=== PATIENT | male | born 1950 | race Caucasian/White ===

== ENCOUNTER → 2023-09-21 06:39 | Day surgery (SDC) | payer MEDICARE, SELFPAY | LOC: GI 06:39 | PROVIDERS: ATTENDING PHYSICIAN Internal Medicine Gastroenterology; FAMILY PHYSICIAN Family Medicine | DX: Z12.11 Encounter for screening for malignant neoplasm of colon (principal); Z53.8 Procedure and treatment not carried out for other reasons | CPT/HCPCS: 45378; 93005; G0378 ==

== ENCOUNTER 2023-09-21 11:41 | Emergency (ER) | payer MEDICARE, SELFPAY ==
[2023-09-21 11:46] VITALS: BP 138/95
[2023-09-21 12:14] LABS: % Basophils 0.8 % (0-2); % Eosinophils 0.1 % (0-6); % Immature Granulocytes 0.1 % (0-0.5); % Lymphocytes 16.3 % (20.5-51.1); % Monocytes 9.6 % (1.7-9.3); % Neutrophils 73.1 % (42.2-75.2); Absolute Basophils 0.1 10^3/uL (0-0.2); Absolute Lymphocytes 1.3 10^3/uL (1.2-3.4); Absolute Monocytes 0.8 10^3/uL (0.1-0.6); Absolute Neutrophils 5.8 10^3/uL (1.4-6.5); Hematocrit 45.5 % (39.0-52.0); Hemoglobin 15.9 g/dL (13.0-18.0); Mean Corp Hgb Conc. 34.9 g/dL (33.0-37.0); Mean Corpuscular Hgb 31.5 pg (27.0-31.0); Mean Corpuscular Volume 90.1 fL (80.0-94.0); Mean Platelet Volume 8.5 fL (7.4-10.4); Nucleated Red Blood Cells % 0 % (-); Platelet Count 314 10^3/uL (130-400); Red Blood Cell Count 5.05 10^6/uL (4.70-6.10); Red Cell Dist. Width 12.7 % (11.5-14.5); White Blood Cell Count 7.9 10^3/uL (4.8-10.8)
[2023-09-21 12:33] LABS: ALT (SGPT) 28 U/L (0-50); AST (SGOT) 34 U/L (17-59); Albumin 4.7 g/dl (3.5-5.0); Alkaline Phosphatase 67 U/L (38-126); Blood Urea Nitrogen 12 mg/dl (9-20); Calcium 9.2 mg/dl (8.4-10.2); Carbon Dioxide 26 mmol/L (22-30); Chloride 103 mmol/L (98-107); Glucose 79 mg/dl (70-99); Potassium 4.2 mmol/L (3.5-5.1); Sodium 139 mmol/L (135-145); Total Bilirubin 1.4 mg/dl (0.2-1.3); Total Protein 7.1 g/dl (6.3-8.2); eGFR > 60.00
[2023-09-21 12:37] LABS: Troponin I < 0.012 ng/ml
--- NOTE | 2023-09-21 14:30 | ED.GENMED ---
History of Present Illness
General
Chief Complaint: Heart Rate Problem
Time Seen by Provider: 09/21/23 14:14
Travel History
Have you had any contact with someone who has COVID-19?: No
Do you have any symptoms of coronavirus? Fever > 100 degrees, chills, cough, shortness of breath, sore throat, loss of taste or smell, muscle aches, or headache?: No
History of Present Illness
History of Present Illness:
HPI: The patient presents to the ED from the GI endoscopy suite. I spoke to Dr. Vargas earlier. The patient had been tried for prep for colonoscopy today (routine), however was found to be in rapid atrial fibrillation. This is a new diagnosis
for the patient. He was advised to come to the emergency department. Upon arrival in the emergency department, heart rate was in the 80s with normal rhythm. He never sensed any abnormality earlier. He reports no history of palpitations or any
other concerns. He does state that he has a history of high blood pressure and has 'severe whitecoat syndrome'.
EXAM:
GENERAL: Well appearing in no distress, mildly hypertensive
HEENT: Moist oral mucosa
CARDIOVASCULAR: No murmurs, normal heart rate and rhythm, No chest wall tenderness
PULMONARY: No respiratory distress, breath sounds are clear and equal
ABDOMEN: Soft with no peritoneal signs, no tenderness
NEUROLOGIC: Excellent strength all extremities, no coordination deficits
PSYCHIATRIC: Appropriate mental status, normal insight and judgement, appears somewhat anxious
EXTREMITIES: Nontender, no edema, moves all extremities equally
SKIN: No rash, no lesions
ED COURSE:
2 PM: I initially evaluated patient
NUMBER AND COMPLEXITY OF PROBLEMS ADDRESSED AT THE ENCOUNTER
� Chronic conditions affecting care: High blood pressure, hyperlipidemia
� Acute Exacerbation and/or Progression of Chronic Illness: This is an acute problem
� Differential Diagnosis includes: New onset atrial fibrillation, electrolyte abnormality, anemia, thyroid disease
AMOUNT AND/OR COMPLEXITY OF DATA TO BE REVIEWED AND ANALYZED
� I performed an independent evaluation of and my interpretation is:
EKG: Sinus 81, left axis deviation, nonspecific ST abnormality
CT:
X-rays:
Laboratory Studies: CBC, chemistries unremarkable, troponin negative, potassium and magnesium are both normal, TSH also normal
Other:
� Review of other/old records: I reviewed the EKG that was obtained from earlier today before arrival at GI office that showed rapid atrial fibrillation
� Clinical information was obtained by an independent historian: I spoke to the but I also spoke to Dr. Vargas for history earlier in the day
� Prescriptions/Medications Considered but not given: Considered and strongly recommended anticoagulation given [id number] score of 2 however the patient strongly prefers to hold off and see news production supervisor first. I advised him
of the possibility of risk of undiagnosed atrial fibrillation. I also informed patient that he may have been in atrial fibrillation for longer time than what was noted today.
� Further testing considered but not performed:
RISK OF COMPLICATIONS AND/OR MORBIDITY OR MORTALITY OF PATIENT MANAGEMENT
� Social determinants of health affecting care: Lives at home
� Discussion with other providers: I spoke to Dr. Vargas who agrees that they will not be doing colonoscopy today; I spoke to Dr. Zuleta who also recommended anticoagulation however the patient adamantly refuses.
� Escalation of care including admission/observation vs risk of discharge considered: The patient is currently in a sinus rhythm. He is no longer in A-fib. His heart rates are in the 80s. He has no symptoms currently and never
had any symptoms earlier. His blood work is unremarkable. Patient appears very comfortable at time of discharge.
Phy Exam
Physical Exam
Physical Exam:
See HPI
Course
Orders/Labs/Results
Orders:
Orders
09/21/23 11:48
Electrocardiogram (*1) Urgent
Reason for Study: Chest Pain
EKG- Treatment ONCE
O2 Therapy [RESP] Urgent
Titrate/Wean O2 to maintain O2 sat greater than (%): 90
Special Instructions: Maintain sats >/=90%
Pulse Ox/spot Check [RESP] Urgent
Quantity: 1
Special Instructions: ON ROOM AIR
09/21/23 12:06
Complete Blood Count/With Diff Urgent
Comprehensive Metabolic Panel Urgent
Magnesium Urgent
Comment: ADD ON
TSH Reflex To Free T4 Urgent
Comment: ADD ON
Troponin I Urgent
09/21/23 14:38
Add On- LAB Urgent
Tests Added?: tsh w/ reflex fT4; magnesium
Abnormal Lab Results
09/21/23
12:06
MCH 31.5 H pg
(27.0-31.0)
Absolute Monos (auto) 0.8 H 10^3/uL
(0.1-0.6)
Lymphocytes % 16.3 L %
(20.5-51.1)
Monocytes % 9.6 H %
(1.7-9.3)
Total Bilirubin 1.4 H mg/dl
(0.2-1.3)
09/21/23 12:06
09/21/23 12:06
Vital Signs
Initial and Last Documented VS:
Initial Vital Signs
Temp Pulse Resp BP Pulse Ox
97.5 F 92 18 138/95 101
09/21/23 11:46 09/21/23 11:46 09/21/23 11:46 09/21/23 11:46 09/21/23 11:46
Last Documented Vital Signs
Temp Pulse Resp BP Pulse Ox
97.5 F 96 18 138/95 96
09/21/23 11:46 09/21/23 14:37 09/21/23 14:37 09/21/23 11:46 09/21/23 14:37
*Critical Care Note
Total Time (30-74mins, 75-104mins- exclusive of procedures): Not Applicable
ED Attending Note
-
Portions of this chart may have been created with voice recognition software.� Occasional wrong word or��sound alike� substitutions may have occurred due to the inherent limitations of voice recognition software.
Discharge Plan
Departure
Patient Disposition: Home (Routine Discharge)
Date of Disposition: 09/21/23
Time of Disposition: 14:56
Patient with high blood pressure during this ER visit?: Yes
Discharge Problem:
Atrial fibrillation with RVR
Instructions: Atrial Fibrillation (DC), Chest Pain DCA Follow Up
Referrals:
Hugo Juarez MD [Active] - Follow up in 2-3 days
Activity Restrictions/Additional Instructions:
The EKG when you are at the news production supervisor office shows rapid atrial fibrillation. However upon arrival here you are back in a normal kind of rhythm. I spoke to Dr. Vargas today and he will not perform the colonoscopy today without cardiac
clearance. I also spoke to Dr. Zuleta, one of the news production supervisor with [facility]. Please follow-up with their office. Return here if worse.
Interventions
Interventions:
*Risk Screen - Suicide Last Done: 09/21/23 14:37
*General Assessment Last Done: 09/21/23 14:37
*Neglect/Abuse Screening Last Done: 09/21/23 14:37
ED- Fall Risk Assessment Last Done: 09/21/23 14:37
*ED COVID-19 Vaccine History Last Done: 09/21/23 14:37
*Nursing Disposition Last Done: 09/21/23 15:04
ED- Cardiac Assessment Last Done: 09/21/23 14:37
ED- Pulmonary Assessment Last Done: 09/21/23 14:37
Discharge Date and Time
Discharge Date/Time: 09/21/23 15:05
[2023-09-21 15:09] LABS: Magnesium 2.2 mg/dl (1.6-2.3)
[2023-09-21 15:55] LABS: TSH Reflex To Free T4 0.82 uIU/ml (0.47-4.68)
== END 2023-09-21 15:05 | disposition home or self-care (01) ==
LOC: EMR 11:41
PROVIDERS: EMERGENCY PHYSICIAN Emergency Medicine; FAMILY PHYSICIAN Family Medicine
DX: I48.91 Unspecified atrial fibrillation (principal); E78.5 Hyperlipidemia, unspecified; I10 Essential (primary) hypertension
CPT/HCPCS: 99284; 80053; 83735; 84443; 84484; 85025; 93005

== ENCOUNTER → 2023-10-19 15:29 | Outpatient (REF) | payer MEDICARE, SELFPAY | LOC: RCS 15:29 | PROVIDERS: ATTENDING PHYSICIAN Nuclear Medicine Nuclear Cardiology; FAMILY PHYSICIAN Family Medicine | DX: I10 Essential (primary) hypertension (principal); I48.0 Paroxysmal atrial fibrillation; R55 Syncope and collapse | CPT/HCPCS: 93306; 93356 ==

== ENCOUNTER → 2024-02-09 07:52 | Outpatient (REF) | payer MEDICARE, SELFPAY | LOC: RCS 07:52 | PROVIDERS: ATTENDING PHYSICIAN Nuclear Medicine Nuclear Cardiology; FAMILY PHYSICIAN Family Medicine | DX: I48.0 Paroxysmal atrial fibrillation (principal); I10 Essential (primary) hypertension | CPT/HCPCS: 93017; 93350 ==

== ENCOUNTER 2024-03-20 05:52 | Day surgery (SDC) | payer MEDICARE, SELFPAY ==
[2024-03-08 10:01] VITALS: BMI 27.4
[2024-03-20] VITALS (15 sets, daily range): BP systolic 125–165; BP diastolic 74–99
[2024-03-20 08:54] LABS: ACT-LR - POC 361 Seconds (116-155)
[2024-03-20 09:12] LABS: ACT-LR - POC 281 Seconds (116-155)
[2024-03-20 09:32] LABS: ACT-LR - POC 334 Seconds (116-155)
--- NOTE | 2024-03-20 13:10 | ITS.CL.ABL ---
[facility] - Ablation
Ablation
Procedure Report:
ELECTROPHYSIOLOGIC STUDY AND POSSIBLE ABLATION
DATE: March 20, 2024
Primary Care Provider: Dr. Ac Eastman
Primary Coin Machine Operator: Dr. Garett Marquez
INDICATION:
Symptomatic Atrial Fibrillation.
Paroxysmal
HISTORY: See H and P.
Symptomatic AF, poorly controlled with attempted medical therapy
HAS-BLED: 1
Age
CHADSVASc: 3
HTN
Age
PRESENTING RHYTHM: SR
HISTORY: See H and P.
Symptomatic AF, poorly controlled with attempted medical therapy.
ANTICOAGULATION: Eliquis
'TIME-OUT': called and confirmed.
SEDATION/ANESTHESIA: provided via the anesthesia department using general anesthesia.
PROCEDURE:
Ultrasound Guidance performed by nv was utilized for femoral venous Vascular Access b/l.
A decapolar CS catheter was placed within the CS for mapping and pacing.
The intracardiac ultrasound catheter was positioned in the RA for continuous intracardiac ultrasound imaging.
Heparin bolus and infusion to target ACT at 300 -350 seconds was administered. Transseptal puncture was performed. This entailed advancing a sheath with dilator into the superior vena cava and withdrawing both (monitoring intracardiac ultrasound,
fluoroscopy and tip pressure) with the tip oriented toward the atrial septum. The fossa ovalis was engaged (indicated by sudden displacement of the sheath tip as well as tenting of the fossa seen on intracardiac ultrasound).
AcReview Trackers transseptal system was used. Left atrial catheter position was confirmed by echocardiographic imaging, pressure monitoring (LA mean pressure 8 mm Hg) and fluoroscopy. The sheath was advanced over the dilator and positioned in the left
atrium.
The multipolar mapping catheter was initially positioned through the transseptal sheath for high density mapping.
Geometry and voltage mapping was performed using the [employer] multipolar grid catheter. Navex was utilized for three-dimensional electroanatomical mapping.
A 3-D map was created using Navex. A 3-D reconstructed CT image was compared to the 3-D Navex map to assist in anatomic evaluation, mapping and ablation.
The Govenlock Green Pulse Select PFA catheter and system was used for cardiac ablation. Catheter positioning was guided and confirmed using both I.C.E. and fluoroscopy.
PV isolation approach was used to electrically isolate each PV ostia. After ostial isolation, additional ablation lesion set was performed to accomplish both wide area circumferential ablation and also to ablate and electrically isolate the
posterior wall of the left atrium.
Remapping with the [employer] multipolar grid catheter found that all PVPs were eliminated at each vein demonstrating entrance block. Also pacing from the multipolar mapping catheter around the the circumference of the ostia was performed at 10 ma and
2.0 msec output to assess for exit block. This demonstrated electrical isolation at each of the pulmonary vein ostia LSPV, LIPV, RSPV, RIPV as well as electrical isolation with both entrance and exit block at the posterior wall of the left.
I.C.E. :
Pre-Ablation Post-Ablation
LVEF: 55 % 55 %
WMA: none none
Pericardial effusion: none none
COMPLICATIONS:
None
SUMMARY:
- Mapping and ablation to isolate the PVs
- Additional AF ablation set after PVI (WACA and LA posterior wall ablation).
- 3-D Electroanatomical Mapping
- Intracardiac Ultrasound
Post ablation, I discussed today's findings and results with the patient's , Nidia.
RECOMMENDATIONS:
- Observe in monitored bed.
- Maintain oral anticoagulation.
- Continue cardiovascular care with Dr Marquez
Copy to:
Dr. Ac Eastman
Dr. Garett Marquez
--- NOTE | 2024-03-20 13:47 | W.PN.UPDATE ---
Update Note
Progress Note Update
74 yo WM s/p PVI (same day). He feels good, no cp, sob, aaron diet, voiding, amb w/o dizziness, EKG SB/SR, R fem site VASCADE c/d/i no HT, soft. He will continue diltiazem and Eliquis. Activity restrictions reviewed. He will f/u Dr. Marquez in 4 weeks.
He is for d/c home after 1pm
SUMMARY:
- Mapping and ablation to isolate the PVs
- Additional AF ablation set after PVI (WACA and LA posterior wall ablation).
- 3-D Electroanatomical Mapping
- Intracardiac Ultrasound
Post ablation, I discussed today's findings and results with the patient's , Nidia.
RECOMMENDATIONS:
- Observe in monitored bed.
- Maintain oral anticoagulation.
- Continue cardiovascular care with Dr Marquez
Copy to:
Dr. Ac Eastman
Dr. Garett Marquez
== END 2024-03-20 13:20 | disposition home or self-care (01) ==
LOC: CATH 05:52
PROVIDERS: ATTENDING PHYSICIAN Internal Medicine Cardiovascular Disease; FAMILY PHYSICIAN Family Medicine; OTHER PHYSICIAN Nuclear Medicine Nuclear Cardiology
DX: I48.0 Paroxysmal atrial fibrillation (principal); I48.92 Unspecified atrial flutter; I47.20 Ventricular tachycardia, unspecified; I10 Essential (primary) hypertension; E78.5 Hyperlipidemia, unspecified; Z85.46 Personal history of malignant neoplasm of prostate; R55 Syncope and collapse; Z87.891 Personal history of nicotine dependence; M19.90 Unspecified osteoarthritis, unspecified site; Z79.01 Long term (current) use of anticoagulants; Z79.899 Other long term (current) drug therapy; F41.9 Anxiety disorder, unspecified; R53.83 Other fatigue; R06.02 Shortness of breath; I47.19 Other supraventricular tachycardia; Z82.3 Family history of stroke; Z82.49 Family history of ischemic heart disease and other diseases of the circulatory system; Z83.3 Family history of diabetes mellitus
CPT/HCPCS: C1732; C1894; C1733; C1769; C1730; C1892; 76937; 85347; 86900; 86901; 93005; 93656; 93657; C1760

== ENCOUNTER 2024-09-03 11:37 | Day surgery (SDC) | payer MEDICARE, SELFPAY ==
--- NOTE | 2024-09-03 14:40 | ITS.CL.IMPLP ---
[facility] - Implant Loop
Implant Loop
Procedure Report:
Date of Procedure: September 03, 2024
Primary Care Provider: Dr. Ac Chan
Primary bander hand: Dr. Garett Marquez
Procedure: Insertable Loop Recorder Implantation
Indication:
Atrial fibrillation
Procedure:
The patient was brought to the procedure area in a fasting state. The anterior chest was prepped and draped in standard sterile fashion. The fourth intercostal space along the left sternal border was identified and this area was anesthetized with 10
mL of 1% lidocaine. After gathering the skin in this area, a small punch incision was made at approx intercostal space 4-5 at left costo-sternal junction using the provided scalpel/punch tool. The loop recorder was loaded into the tunneling device.
A tunnel was created in the subcutaneous tissue at a 45� angle along the coronal plane away from the sternum and towards the left flank. The tunneling device was inverted and the plunger was depressed, inserting the loop recorder into the
subcutaneous space. The tunneling device was removed. Manual pressure provide hemostasis. Adequate signal was confirmed. The skin was closed with steri-strips. The estimated blood loss was < 1 cc. A clean dressing was placed over the wound.
There were no complications.
Implant:
Medtronic Reveal LINQ
Conclusion: Uncomplicated implantation of loop recorder.
Recommendation:
Stop oral anticoagulation and assess implanted loop recorder for any recurrence of atrial fibrillation which would require resumption of oral anticoagulation.
Routine ILR care.
Copy:
Dr. Ac Chan
Dr. Garett Marquez
== END 2024-09-03 13:14 | disposition home or self-care (01) ==
LOC: CATH 11:37
PROVIDERS: ATTENDING PHYSICIAN Internal Medicine Cardiovascular Disease; FAMILY PHYSICIAN Family Medicine; OTHER PHYSICIAN Nuclear Medicine Nuclear Cardiology
DX: Z09 Encounter for follow-up examination after completed treatment for conditions other than malignant neoplasm (principal); I48.91 Unspecified atrial fibrillation
CPT/HCPCS: 33285; C1764

== ENCOUNTER → 2025-07-09 11:30 | Outpatient (REF) | payer MEDICARE, SELFPAY | LOC: RAD 11:30 | PROVIDERS: ATTENDING PHYSICIAN Family Medicine | DX: R20.2 Paresthesia of skin (principal) | CPT/HCPCS: 70450 ==